=== PATIENT | female | born 1960 | race African-American/Black ===

== ENCOUNTER 2017-09-04 09:49 | Outpatient (CLI) | payer OTHER ==
[~2017-09-04 09:49] MED LIST: COZAAR100 MG; LIPITOR20 MG; LOZOL2.5 MG; NEURONTIN300 MG; NEURONTIN600 MG; PLETAL; PREVACID15 MG; SINGULAIR4 M1; TROMBONEX CAPSU1 CAP; XANAX1 MG; ZANTAC300 MG; ZOLOFT20 MG/1 ML
== END 2017-09-04 10:29 | disposition home or self-care (01) ==
LOC: NUCLEAR 09:49
DX: M13.0 Polyarthritis, unspecified (principal)
CPT/HCPCS: 78306; 78315; A9503

== ENCOUNTER 2018-07-09 11:46 | Emergency (ER) | payer OTHER ==
[~2018-07-09] VITALS: Ht 167.6 cm; Wt 102.5 kg
== END 2018-07-09 15:58 | disposition home or self-care (01) ==
LOC: ER 11:46
DX: M54.2 Cervicalgia (principal); R51 Headache

== ENCOUNTER → 2018-07-11 | Outpatient (CLI) | payer OTHER | END | disposition home or self-care (01) | LOC: MRI 09:15 | DX: M54.5 Low back pain (principal) | CPT/HCPCS: 72148 ==

== ENCOUNTER → 2021-10-19 08:00 | Outpatient (CLI) | payer OTHER ==
[~2021-10-19] VITALS: Ht 160 cm; Wt 108.0 kg
[~2021-10-19 08:00] MED LIST changes: +AMBIE PO; +CANDESARTAN CILE8 MG; +CYMBALTA30 MG PO; +LIPIT PO; +PEPCID PO; +VITAMIN D PO; +XARELTO20 MG PO; +ZOLOFT PO; +[UNRECOGNIZED DRUG - OTHER] PO
== END | disposition home or self-care (01) ==
LOC: LAB 08:00 → SURG 10-24 07:15 → EDSTATUS 10-24 07:15 → SURG 10-24 13:45
PROVIDERS: ATTEND Orthopaedic Surgery
DX: M17.11 Unilateral primary osteoarthritis, right knee (principal); Z01.812 Encounter for preprocedural laboratory examination

== ENCOUNTER → 2022-06-06 09:47 | Outpatient (CLI) | payer OTHER | END | disposition home or self-care (01) | LOC: LAB 09:47 | PROVIDERS: ATTEND Internal Medicine Hematology & Oncology | DX: D68.61 Antiphospholipid syndrome (principal); M17.11 Unilateral primary osteoarthritis, right knee; I80.221 Phlebitis and thrombophlebitis of right popliteal vein; D51.3 Other dietary vitamin B12 deficiency anemia; I10 Essential (primary) hypertension; G62.9 Polyneuropathy, unspecified ==

== ENCOUNTER 2024-12-10 20:17 | Emergency (ER) | payer OTHER ==
[~2024-12-10] VITALS: Ht 160 cm; Wt 117.5 kg
[2024-12-10 21:22] VITALS: BP 149/74; O2SAT 99
[2024-12-10] MEDS ORDERED: ORPHENADRINE CITRATE 30 MG/ML AMPUL IM STA (23:12)
[2024-12-10] MEDS ORDERED: TRAMADOL HCL 50 MG TABLET PO STA (23:13)
[2024-12-10] MEDS ORDERED: DEXAMETHASONE SODIUM PHOSPHATE 4 MG/ML VIAL IM STA (23:13)
[2024-12-10] MEDS ORDERED: DEXAMETHASONE SODIUM PHOSPHATE 4 MG/ML VIAL ONE (23:34)
[2024-12-10] MEDS ORDERED: ORPHENADRINE CITRATE 30 MG/ML AMPUL ONE (23:34)
[2024-12-11 00:16] LABS: BASO % 0.6 % (0.1-1.2); EOS # 0.09 (0.04-0.54); EOS % 1.4 % (0.7-7.0); LYMPH # 2.03 (1.18-3.74); LYMPH % 32.0 % (19.3-53.1); MEAN PLATELET VOLUME 10.50 fl (9.4-12.4); MONO # 0.69 (0.24-0.82); MONO % 10.9 % (4.7-12.5); NEUT # 3.47 (1.56-6.13); NEUT % 54.8 % (34.0-71.1); RED CELL DISTRIBUTION WIDTH 15.8 % (11.6-14.4)
[2024-12-11 00:35] LABS: ALT/SGPT 17.0 U/L (12-78); AST/SGOT 16.0 U/L (15-37); BILIRUBIN TOTAL 0.51 mg/dL (0.3-1.2); BUN CREA RATIO 14.0 (7.0-25.0); CREATININE SERUM 0.72 mg/dL (0.55-1.02); GFR 82.08; GLOBULINA 4.3 G/DL (2.4-3.5); GLUCOSE FASTING 108.0 mg/dL (65-100); OSMOLALITY SERUM 283.0 MOSM/KG (275-295)
== END 2024-12-11 01:17 | disposition home or self-care (01) ==
LOC: ER 20:17
PROVIDERS: General Practice
DX: M79.672 Pain in left foot (principal); Z88.1 Allergy status to other antibiotic agents
CPT/HCPCS: 36415; 73630; 96372; 99283; J1100; J2360